=== PATIENT | male | born 1980 | race Caucasian/White ===

== ENCOUNTER → 2016-07-14 | Emergency (ER) ==
[2016-07-14 12:33] VITALS: BP 152/086
[2016-07-14 12:45] LABS: URINE CULTURE PL NEEDED? NO; URINE SOURCE CLEAN CATCH
[2016-07-14 13:00] LABS: BILIRUBIN URINE NEGATIVE (NEGATIVE); BLOOD URINE NEGATIVE (NEGATIVE); CLARITY CLEAR (CLEAR); COLOR YELLOW; GLUCOSE URINE NEGATIVE (NEGATIVE); LEUKOCYTES URINE NEGATIVE (NEGATIVE); NITRITE URINE NEGATIVE (NEGATIVE); PROTEIN URINE NEGATIVE (NEGATIVE); SP GRAVITY URINE 1.015; UROBILINOGEN URINE NORMAL
[2016-07-14 13:04] LABS: URINE EPITHELIAL CELLS <10 /HPF (<10)
--- NOTE | 2016-07-14 13:27 | PROVIDER DOCUMENTATION ---
HPI-General Adult - General Chief Complaint: Male Stated Complaint: TESTICULAR PAIN Time Seen by Provider: 07/14/16 12:45 Source: patient Allergies/Adverse Reactions: Patient Allergies Allergy/AdvReac Type Severity Reaction Status Date / Time No Known Allergies Allergy Verified 07/14/16 12:32 Home Medications: No Home Medications 07/14/16 - History of Present Illness -Gen Adult Nature of Presenting Problems: Pt. is 36 yom that presents with c/o left side testicular pain that was a gradual onset after he went for a run this morning. Pt. denies any injury but does report the pain made him nauseated. Pt. denies any painful urination. Location of Pain/Injury: reports: genitalia. denies: head, face, mouth, neck, chest, upper extremity, hand(s), abdomen, back, pelvis, lower extremity, feet, upper body, lower body, generalized Pain Radiation: reports: no radiation Quality of Pain: reports: aching. denies: burning, cramping, dull, fullness, indigestion, pressure, sharp, stabbing, tearing, throbbing, tightness Severity: reports: moderate. denies: mild, severe Onset/Duration: reports: gradual, this morning Timing: reports: still present, gone now. denies: improving, resolved prior to arrival, intermittent, constant, changing over time, getting worse Context/Activities at Onset: reports: moderate activity. denies: recent emotional stress, recent physical stress, recent trauma history, possible bad food, cold exposure, out of country travel Modifying Factors: improves with: nothing Associated Symptoms: reports: genitourinary problems. denies: anxiety, arm pain , back/neck pain, chest pain, constipation, cough, diaphoresis, diarrhea, dizziness, EENT symptoms, fatigue, fever/chills, headaches, heartburn, joint pain, loss of appetite, malaise, muscle aches, sinus congestion/drainage, nausea , rash, seizure, shortness of breath, sensory/motor loss, pain with inspiration , swelling/mass in abdomen, syncope, vomiting, weakness, trouble walking Similar Symptoms Previously?: No Recently seen or treated by another doctor?: No Review of Systems - Adult - REVIEW OF SYSTEMS - ADULT Constitutional: reports: see HPI. denies: chills, fever, fatique Eyes: reports: see HPI. denies: discharge, blurred vision, double vision Ears, Nose, Mouth & Throat: reports: see HPI. denies: ear discharge, ear pain, hearing loss, sinus problem, nose pain, loose teeth, mouth/dental pain, throat pain, throat swelling Cardiovascular: reports: see HPI. denies: chest pain, irregular heart rate, orthopnea, syncope Respiratory: reports: see HPI. denies: chronic cough, cough, dyspnea on exertion, pleurisy, shortness of breath, wheezing Gastrointestinal: reports: see HPI, nausea. denies: abdominal pain, hematemesis , difficulty swallowing, frequent heartburn, vomiting Genitourinary: reports: see HPI, other (testicular pain). denies: dysuria, discharge, flank pain, hematuria, hesitency, incontinence, urgency Musculoskeletal: reports: see HPI. denies: bone pain, back pain, joint pain, joint swelling, muscle aches, neck pain Integumentary: reports: see HPI. denies: hives, hair loss, itching, rash, skin thickening Neurological: reports: see HPI. denies: ataxia, dizziness/vertigo, headache/ migraines, numbness, seizure, tremors Psychiatric: reports: see HPI. denies: anxiety, depression, emotional problems , insomnia, panic attacks, suicidal thoughts Past History - Adult - PAST MEDICAL HISTORY-ADULT Review of Records: reports: Old Records Reviewed, Nursing Assessment Review, Medications Reviewed, Social history reviewed & non-contributory. Physical Exam-General - PHYSICAL EXAM-ADULT Initial Vital Signs Reviewed: Yes - CONSTITUTIONAL General Appearance: alert, no apparent distress, thin. negative: anxious, lethargic, slow to respond, obtunded, combative - EYES Eyes: PERRL/EOMI, pink conjunctivae. negative: conjuctival exudate, photophobia , scleral icterus, subconjunctival hemorrhage - HEAD, EARS, NOSE, MOUTH & THROAT HENMT: normocephalic/atraumatic, moist mucous membranes. negative: angioedema, frontal tenderness, maxillary tenderness - NECK Neck: non-tender, full range of motion, supple, normal inspection. negative: lymphadenopathy, trachial deviation, thyromegaly - RESPIRATORY Respiratory: lungs clear, normal breath sounds. negative: crackles, rales, rhonchi, stridor, wheezing - CARDIOVASCULAR Cardiovascular: normal peripheral pulses, regular rate, rhythm, no edema, no JVD , no murmur. negative: extra beats, friction rub, irregularly irregular - CHEST (BREASTS) Chest/Breast: deferred - GASTROINTESTINAL (ABDOMEN) Abdominal Exam: normal bowel sounds, non tender, soft. negative: hernia, mass - GENITOURINARY Male Genitalia: deferred Rectal Exam: deferred Hemoccult Exam: deferred - LYMPHATIC Lymphatic: no adenopathy. negative: axilla node tender, cervical node tenderness - MUSCULOSKELETAL Back Exam: normal inspection, no CVA tenderness, no vertebral tenderness. negative: ecchymosis, muscle spasm, vertebral tenderness Extremity: normal range of motion, non-tender, normal gait, normal inspection. negative: deformity, erythema, inflammation, swelling, tenderness Peripheral Pulses: radial (R): 2+, radial (L): 2+ - SKIN Integumentary: normal color, normal turgor, warm/dry. negative: cyanosis, diaphoresis, ecchymosis, erythema, jaundice, mottled, pallor, petechiae, purpura , rash, swelling, tenderness - NEUROLOGIC Neurologic: grossly normal, no motor/sensory deficits. negative: abnormal gait , aphasia, facial droop, focal weakness, motor weakness, sensory deficit - PSYCHIATRIC Psych/Mental Status: normal mood/affect, normal thought content, normal thought process, oriented x 3. negative: anxious, paranoid, tearful Progress - PLAN OF CARE/RESULTS Progress/Plan/Lab Results: Discussed results and plan of care with patient. Patient agrees with plan and verbalizes understanding. Vital Signs Temp Pulse Resp BP Pulse Ox 07/14/16 12:26 98.8 F 90 18 152/086 99 No Known Allergies Allergy (Verified 07/14/16 12:32) No Home Medications 07/14/16 Laboratory 07/14/16 12:40 Urine Source CLEAN CATCH Urine Color YELLOW Urine Clarity CLEAR Urine pH 7.0 Ur Specific [place] 1.015 Urine Protein NEGATIVE Urine Ketones NEGATIVE Urine Blood NEGATIVE Urine Nitrite NEGATIVE Urine Bilirubin NEGATIVE Urine Urobilinogen NORMAL Urine Microscopic RBC Not Reportable Urine WBC NEGATIVE Ur Epithelial Cells <10 Urine Glucose NEGATIVE Orders Category Date Time Status US SCROTUM [US] Stat Exams 07/14/16 12:34 Draft UA [URINALYSIS PL W/POSS RFLX CULT] [URINALYSIS] Stat Lab 07/14/16 12:40 Completed Laboratory Tests 07/14/16 12:40 Urine Source CLEAN CATCH Urine Color YELLOW Urine Clarity CLEAR Urine pH 7.0 Ur Specific [place] 1.015 Urine Protein NEGATIVE Urine Ketones NEGATIVE Urine Blood NEGATIVE Urine Nitrite NEGATIVE Urine Bilirubin NEGATIVE Urine Urobilinogen NORMAL Urine Microscopic RBC Not Reportable Urine WBC NEGATIVE Ur Epithelial Cells <10 Urine Glucose NEGATIVE - ULTRASOUND (By Radiology) 1 US Study: Scrotum (testicular varicoceles, L>R. Probably partially thrombosed. Otherwise normal ([place])) US Results: see note Departure - Departure Time of Disposition Order: 13:32 DIAGNOSIS: Testicle pain, Varicocele present on ultrasound of scrotum Disposition: HOME 01 Certified Medical Emergency: Emergent Condition: Stable Additional Instructions: Follow up with primary care physician Follow up with urologist Return to ED for any concerns or worsening of symptoms ED Follow Up Instructions: You have been treated by a care provider in the Emergency Department. These instructions are being provided to you so you can have an understanding of how to care for yourself upon discharge. Upon discharge from the Emergency Department, you are responsible for making arrangements for follow-up care by a physician of your choice. Take all prescribed medications as directed. Return to the Emergency Department immediately for any new or worsening symptoms. You may call the Physician Referral phone number at [phone] to obtain a list of Physicians who are taking new patients. Referrals: None,PCP [Primary Care Provider] - Roberto Soares, DO [STAFF PHYSICIAN] - Attestation - Physician/ Mid-level Attestation Patient care was provided by Mid-level provider (FISH HATCHERY ASSISTANT/PA):: Yes Mid-level provider:: Chandu Flanagan Mid-level documentation review:: The Mid-level provider documentation, treatment plan and medical decision making was reviewed by the physician who agrees with all treatment and medical decision making by the P.
--- NOTE | 2016-07-14 13:30 | Diag Imaging Result Document ---
PROCEDURE NAME: US SCROTUM - 07/14/2016 TESTICULAR ULTRASOUND, 07/14/2016: COMPARISON: None. FINDINGS: There are increased venous blood vessels at the testis bilaterally compatible with bilateral varicoceles. Most of these vessels do fill with color Doppler flow but some do not, suggesting partially thrombosed varicoceles. The testes themselves are normal. The right testicle measures 4.9 x 2.5 cm. The left testicle measures 4.3 x 2.3 cm. No abnormal fluid collections. IMPRESSION: Bilateral testicular varicoceles left greater than right. Probably partially thrombosed. The testes themselves are normal.
== END | disposition home or self-care (01) ==
LOC: P.ED 12:10
DX: I86.1 Scrotal varices (principal); N50.812 Left testicular pain
CPT/HCPCS: 76870; 81001